=== PATIENT | male | born 1960 | race Caucasian/White ===

== ENCOUNTER 2022-05-23 11:02 | Observation (INO) ==
[2022-05-23 12:56] LABS: Bacteria,Urine Few per hpf (None-Few); Bilirubin,Urine Negative (Negative); Blood,Urine Moderate (Negative); Clarity,Urine Clear (Clear); Color,Urine Yellow (Yellow); Glucose,Urine (UA) Normal (Normal); Hyaline Casts,Urine Few per lpf (None Seen); Ketones,Urine Negative (Negative); Leukocyte Esterase,Urine Negative (Negative); Mucus,Urine Few per lpf (None-Few); Nitrite,Urine Negative (Negative); PH,Urine 5.5 pH Units (5.0-8.0); Protein,Urine 70 mg/dL (Neg-Trace); RBC,Urine 0-3 per hpf (0-3); Specific Gravity,Urine 1.026 (1.010-1.025); Urobilinogen,Urine Normal (Normal); WBC,Urine 0-3 per hpf (0-3)
[2022-05-23 12:58] LABS: Hematocrit 49.5 % (37.5-50.1); Hemoglobin 16.3 g/dL (12.9-16.9); Mean Corpuscular HGB Conc 32.9 g/dL (31.6-35.5); Mean Corpuscular Hemoglobin 30.4 pg (28.0-33.3); Mean Corpuscular Volume 92.2 fL (83.0-100.0); Mean Platelet Volume 10.2 fL (9.4-12.4); Platelet Count 245 K/mcL (140-400); Red Blood Count 5.37 M/mcL (4.19-5.50); Red Cell Distribution Width 13.1 % (11.5-14.5); White Blood Count 17.8 K/mcL (4.3-11.1)
[2022-05-23 13:20] LABS: Albumin 3.9 g/dL (3.5-5.7); Albumin/Globulin Ratio 1.1 (1.1-2.2); Bilirubin,Direct 0.1 mg/dL (0.0-0.2); Bilirubin,Indirect 0.6 mg/dL (0.0-1.0); Bilirubin,Total 0.7 mg/dL (0.3-1.0); Calcium 9.6 mg/dL (8.6-10.3); Globulin 3.6 g/dL (2.4-3.5); Potassium 4.3 mEq/L (3.5-5.1); Total Protein 7.5 g/dL (6.4-8.9)
[2022-05-23] MEDS ORDERED: Ondansetron 4 MG/2 ML VIAL IVP PRN (13:38)
[2022-05-23] MEDS ORDERED: Acetaminophen 325 MG TABLET PO PRN (13:38)
[2022-05-23] MEDS ORDERED: Ketorolac 30 MG/ML VIAL IVP PRN (13:38)
[2022-05-23] MEDS ORDERED: Naloxone 0.4 MG/ML INJ IVP PRN (13:38)
[2022-05-23] MEDS: Ringers Solution, Lactated 1,000 ML IVC SCH (15:31)
[2022-05-23] MEDS: *HR* Heparin 5,000 UNIT/ML VIAL SQ SCH (18:48)
[2022-05-24] MEDS: Ringers Solution, Lactated 1,000 ML IVC SCH (06:08)
[2022-05-24] MEDS: *HR* Heparin 5,000 UNIT/ML VIAL SQ SCH (06:09)
[2022-05-24 09:45] VITALS: BP 115/69; PULSE 72; TEMP 98; O2SAT 94
[2022-05-26 09:48] LABS: Immunoglobulin G Subclass 4 6 mg/dL (1-123)
[2022-05-26 09:56] LABS: ANA IgG by ELISA DETECTED (None Detected)
== END 2022-05-24 11:10 | disposition home or self-care (01) ==
LOC: EMEROOARM 11:02 → 3ANU 11:02 → SUATTDRO 13:48 → 3ANU 14:46
PROVIDERS: ADMIT Internal Medicine; ATTEND Internal Medicine